=== PATIENT | male | born 1965 | race Caucasian/White ===

== ENCOUNTER 2017-08-13 18:54 | Emergency (ER) | payer OTHER ==
[~2017-08-13] VITALS: Ht 170.2 cm; Wt 101.0 kg
[2017-08-13 23:40] VITALS: BP 134/78
== END 2017-08-13 23:41 | disposition home or self-care (01) ==
LOC: ER 21:31
DX: G47.00 Insomnia, unspecified (principal); F14.10 Cocaine abuse, uncomplicated
CPT/HCPCS: 99282